=== PATIENT | male | born 1960 | race Caucasian/White ===

== ENCOUNTER 2020-01-08 14:13 | Inpatient (IN) | payer OTHER ==
[~2020-01-08] VITALS: Ht 185.4 cm; Wt 84.1 kg
[2020-01-08] MEDS ORDERED: AMLO5TAB9 PO (14:48)
[2020-01-08] MEDS ORDERED: ASPI81TA31 PO (14:48)
[2020-01-08] MEDS ORDERED: INSU100I26 SUBCUT (14:48)
[2020-01-08] MEDS ORDERED: HYDR-894 PO (14:49)
[2020-01-08] MEDS ORDERED: LOSA100T31 PO (14:49)
[2020-01-08] MEDS ORDERED: METO-357 PO (14:49)
[2020-01-08] MEDS ORDERED: GABA-534 PO (14:49)
[2020-01-08 15:37] LABS: *BILIRUBIN,URIN NEGATIVE (NEGATIVE); *CLARITY,URINE CLEAR (CLEAR); *COLOR,URINE YELLOW (YELLOW); *KETONES,URINE NEGATIVE (NEGATIVE); *UROBILINOGEN,URINE 0.2 E.U./dl (NORMAL); LEUKOCYTE ESTERASE ,URINE NEGATIVE (NEGATIVE); NITRITE, URINE NEGATIVE (NEGATIVE); PH,URINE 6.5 (5.0-8.0); UGLUCOSE 2+ (NEGATIVE)
[2020-01-08 15:44] LABS: BASOPHILS # (AUTO) 0.2 K/uL (0.0-8.0); BASOPHILS % (AUTO) 2.4 % (0.0-2.0); EOSINOPHILS # (AUTO) 0.1 K/uL (0.0-0.7); EOSINOPHILS % (AUTO) 1.8 % (0.0-7.0); HEMATOCRIT 24.9 % (36.7-47.1); HEMOGLOBIN 8.6 g/dL (12.5-16.3); LYMPHOCYTES # (AUTO) 1.9 K/uL (20.0-40.0); MEAN CORPUSCULAR HEMOGLOBIN 34.5 uug (23.8-33.4); MEAN CORPUSCULAR HGB CONC 35 g/dL (32.5-36.3); MEAN CORPUSCULAR VOLUME 99.8 fL (73.0-96.2); MONOCYTES # (AUTO) 0.6 K/uL (2.0-10.0); NEUTROPHILS # (AUTO) 4.1 K/uL (1.8-8.9); NEUTROPHILS % (AUTO) 59.8 % (38.5-71.5); PLATELET COUNT (AUTO) 507 K/uL (152-348); WHITE BLOOD COUNT (AUTO) 6.9 K/uL (3.6-10.2)
[2020-01-08 15:44] LABS: *AMPHETAMINE, URINE NEGATIVE (NEGATIVE); *BARBITURATE, URINE NEGATIVE (NEGATIVE); *CANNABINOID, URINE NEGATIVE (NEGATIVE); *COCCAINE, URINE NEGATIVE (NEGATIVE); *OPIATE, URINE NEGATIVE (NEGATIVE); *PHENCYCLIDINE SCREEN,URINE NEGATIVE (NEGATIVE)
[2020-01-08 15:53] LABS: CARBON DIOXIDE 29 mmol/L (21-32); CHLORIDE 106 mmol/L (98-107); CREATININE 1.6 mg/dL (0.6-1.3); POTASSIUM 4.4 mmol/L (3.5-5.1); UREA NITROGEN, BLOOD 29 mg/dL (7-18)
[2020-01-08 15:55] LABS: GLUCOSE 317 mg/dL (74-106)
[2020-01-08 15:59] LABS: ALANINE AMINOTRANSFERASE 20 U/L (16-63); ALKALINE PHOSPHATASE 61 U/L (50-136); ASPARTATE AMINOTRANSFERASE 18 U/L (15-37); BILIRUBIN,DIRECT < 0.1 mg/dL (0.0-0.2); BILIRUBIN,TOTAL 0.1 mg/dL (0.2-1.0); TOTAL PROTEIN, SERUM 5.8 g/dL (6.4-8.2)
[2020-01-08] MEDS ORDERED: INSULIN REGULAR, HUMAN 300 UNIT/3 ML VIAL IV ONE (16:00)
[2020-01-08 16:01] LABS: *BLOOD, URINE TRACE (NEGATIVE)
[2020-01-08] MEDS ORDERED: INSULIN REGULAR, HUMAN 300 UNIT/3 ML VIAL ONE (16:04)
[2020-01-08 16:07] LABS: ETHANOL < 3 MG/DL (0-0)
[2020-01-08 16:07] LABS: SQUAMOUS EPITHELIAL CELL,UR FEW /HPF (NONE SEEN); WBC,URINE 0-3 /HPF (0-3)
[2020-01-08 16:12] LABS: THYROID STIMULATING HORMONE 3.051 mIU/mL (0.358-3.740)
--- NOTE | 2020-01-08 16:13 | NUR ---
Patient not medically cleared due to low grade fever.
[2020-01-08] MEDS ORDERED: INSULIN REGULAR, HUMAN 300 UNIT/3 ML VIAL SQ ONE (16:15)
--- NOTE | 2020-01-08 16:29 | NUR ---
Dr Razo spoke Marco SOFTWARE QUALITY ENGINEER distribution technician [facility]. Okay to admit patient to med surg.
--- NOTE | 2020-01-08 16:40 | NUR ---
Unable transfer patient to 3rd floor med surg due to no sitter availbale.
[2020-01-08] MEDS ORDERED: DEXTROSE 50% 50 ML DISP.SYRIN IV PRN (19:00)
[2020-01-08] MEDS ORDERED: ONDANSETRON 4 MG/2 ML VIAL IV PRN (19:00)
[2020-01-08] MEDS ORDERED: MORPHINE SULFATE 2 MG/1 ML DISP.SYRIN IV PRN (19:00)
[2020-01-08] MEDS ORDERED: HYDROCODONE/APAP 5-325MG TABLET PO PRN (19:00)
--- NOTE | 2020-01-08 19:05 | NUR ---
Annie villagomez in [facility] - 01/08/20 at 2 by [id number] Patient out of unit for ct scan.
--- NOTE | 2020-01-08 19:26 | NUR ---
Annie villagomez in [facility] - 01/08/20 at 2032 by CAYETANO Patient back from ct scan
[2020-01-08] MEDS ORDERED: FOLIC ACID 1 MG TABLET PO ONE (19:30)
[2020-01-08] MEDS ORDERED: THIAMINE HCL 100 MG TABLET PO ONE (19:30)
--- NOTE | 2020-01-08 20:28 | NUR ---
PATIENT TRANSFERED TO 3RD FLOOR VIA WHEELCHAIR. NO DISTRESS NOTED.
--- NOTE | 2020-01-08 20:40 | NUR ---
Admitted 59y/o Male under the care of Phil PARK. Patient is A&Ox4, no SOB noted. Placed on Tele monitor noted Sinus Leroy. IV on LFA 20g intact and patent. On 5150 hold of SI and DTS w/ 1:1 sitter. Admission protocol initiated. Body assessment done. Safety measures in place. Will cont to monitor
[2020-01-08] MEDS: IV NS 1000 ML 1,000 ML IV PRN (21:40)
[2020-01-08] MEDS: INSULIN REGULAR, HUMAN 300 UNITS/3 ML VIAL SQ PRN (21:46)
[2020-01-08] MEDS: BLOOD SUGAR DIAGNOSTIC 1 EACH STRIP VI SCH (21:49)
[2020-01-08] MEDS ORDERED: CLONIDINE HCL 0.2 MG TABLET PO ONE (22:15)
[2020-01-08] MEDS ORDERED: CLONIDINE HCL 0.1 MG TABLET PO PRN (22:15)
--- NOTE | 2020-01-08 22:20 | NUR ---
Patient noted w/ elevated BP 177/73, HR-47, informed Cihp IGNITION MECHANIC w/ n.o for Clonidine 0.2mg PO x 1 dose now and Clonidine 0.1mg PO Q6PRN for SBP>160. Also patient requesting for sleeping pill and said he's been taking Trazodone every night, n.o for Trazodone 50mg PO QHS PRN. Clarified w/ Phil IGNITION MECHANIC if ok to give clonidine for HR of 47 and he said yes.
[2020-01-08] MEDS: TRAZODONE 50 MG TABLET PO PRN (22:32)
--- NOTE | 2020-01-08 23:35 | NUR ---
Clarified w/ Phil ELECTRONICS SPECIALIST regarding patient's dx of r/o COVID and the need for isolation, he said yes for isolation so will transfer patient to [facility] covid unit rm 210 for PUI.
--- NOTE | 2020-01-09 00:20 | NUR ---
Report given to Ely CLANCY for transfer of care, patient transferred to rm 210 for contact and droplet isolation for r/o COVID
--- NOTE | 2020-01-09 00:30 | NUR ---
PATIENT RECEIVED INTO CARE VIA RNEY FROM ER. PATIENT IS ALERT/ORIENTED X4 AND HAS NO COMPLAINTS OF PAIN OR DISCOMFORT AT THIS TIME. PATIENT DENIES SI AND IS ABLE TO CONTRACT FOR SAFETY WITH THIS NURSE. ALL SAFETY AND ISOLATION PRECAUTIONS ARE IN PLACE. 1:1 SITTER AT SIDE. WILL CONTINUE TO MONITOR AND ASSESS.
--- NOTE | 2020-01-09 06:00 | NUR ---
PATIENT SLEPT INTERMITTENTLY THROUGHOUT NIGHT WITH NO COMPLAINTS OF PAIN OR DISCOMFORT VERBALIZED. PATIENT HAD NO INCIDENTS OF SI THIS SHIFT AND IS STILL AYAZ FOR SAFETY WITH THIS NURSE. ALL PRESCRIBED MEDICATIONS PROVIDED ORDERED AND TOLERATED WELL WITH NO ADVERSE SIDE EFFECTS VERBALIZED BY PATIENT OR NOTED/OBSERVED BY THIS NURSE. ALL SAFETY AND ISOLATION PRECAUTIONS REMAIN IN PLACE.
[2020-01-09] MEDS: PANTOPRAZOLE SODIUM 40 MG TABLET.DR PO SCH (06:15)
[2020-01-09] MEDS: BLOOD SUGAR DIAGNOSTIC 1 EACH STRIP VI SCH ×4 (06:30→20:31)
[2020-01-09 07:55] VITALS: BP 162/67
--- NOTE | 2020-01-09 08:15 | NUR ---
Patient in bed, awake and verbally responsive. On Room air saturating 97%. No complain of Pain or discomfort. Still awaiting for covid 19 test. patient on Hold until 01/09/2020 1432 , remains on 1:1 sitter. Kept clean and comfortable. BS 226, will give 6 units Regular Insulin. Kept clean and comfortable. Will continue to monitor.
[2020-01-09] MEDS: INSULIN REGULAR, HUMAN 300 UNIT/3 ML VIAL SQ PRN ×3 (08:41→17:17)
[2020-01-09] MEDS: ASPIRIN 81 MG TAB.CHEW PO SCH (08:45)
[2020-01-09] MEDS: MULTIVITAMINS,THERAPEUTIC TABLET PO SCH (08:45)
[2020-01-09] MEDS: GABAPENTIN 300 MG CAPSULE PO SCH ×3 (08:45→16:56)
[2020-01-09] MEDS: AMLODIPINE 5 MG TABLET PO SCH (08:46)
[2020-01-09] MEDS: LOSARTAN POTASSIUM 50 MG TABLET PO SCH (08:46)
[2020-01-09] MEDS ORDERED: Medication Not On Formulary EA (Losartan Potassium 100 MG) PO SCH (09:00)
[2020-01-09] MEDS ORDERED: METOPROLOL SUCCINATE XL 50 MG TAB.SR.24H PO SCH (09:00)
[2020-01-09] MEDS ORDERED: hydrALAZINE HCL 25 MG TABLET PO SCH (09:00)
[2020-01-09] MEDS ORDERED: METOPROLOL TARTRATE 50 MG TABLET PO SCH (09:54)
[2020-01-09] MEDS ORDERED: METO50TA16 PO (09:56)
[2020-01-09] MEDS: NICOTINE 14 MG/24HR PATCH TD SCH (11:01)
[2020-01-09 11:17] VITALS: BP 143/64
[2020-01-09] MEDS ORDERED: hydrALAZINE HCL 25 MG TABLET PO PRN (13:30)
[2020-01-09] MEDS: IV NS 1000 ML 1,000 ML IV PRN (14:16)
[2020-01-09 15:20] VITALS: BP 126/67
--- NOTE | 2020-01-09 18:11 | NUR ---
Patient in bed, awake and verbally responsive. No signs of distress noted. NO SOB. Saturating 98% on Room Air. Afebrile. No complain of Pain or discomfort. Last BS is 170, 3 units given as ordered. Remains on 1:1 sitter. Kept clean and comfortable. Will Endorse to Oncoming Nurse.
[2020-01-09 20:00] VITALS: BP 144/69
[2020-01-09] MEDS: INSULIN REGULAR, HUMAN 300 UNITS/3 ML VIAL SQ PRN (20:33)
[2020-01-09] MEDS ORDERED: TRAZODONE 100 MG TABLET ONE (22:39)
[2020-01-09] MEDS: TRAZODONE 100 MG TABLET PO SCH (22:59)
[2020-01-10 01:05] VITALS: BP 136/56
[2020-01-10 04:40] VITALS: BP 165/69
--- NOTE | 2020-01-10 05:12 | NUR ---
No acute events overnight, pt able to sleep during shift,pt put on a 14 day hold by Psychiatrist, pt agrees with the plan of care.
[2020-01-10] MEDS: IV NS 1000 ML 1,000 ML IV PRN (05:57)
[2020-01-10] MEDS: PANTOPRAZOLE SODIUM 40 MG TABLET.DR PO SCH (06:46)
[2020-01-10] MEDS: BLOOD SUGAR DIAGNOSTIC 1 EACH STRIP VI SCH ×4 (07:00→21:57)
[2020-01-10 08:00] VITALS: BP 161/67
--- NOTE | 2020-01-10 08:00 | NUR ---
Patient noted sitting up in bed, took all AM medications, no complaints of pain, no signs of distress noted, call light in reach, bed locked and in lowest position, all needs met at this time
[2020-01-10] MEDS: SERTRALINE HCL 50 MG TABLET PO SCH (08:27)
[2020-01-10] MEDS: LOSARTAN POTASSIUM 50 MG TABLET PO SCH (08:27)
[2020-01-10] MEDS: ASPIRIN 81 MG TAB.CHEW PO SCH (08:27)
[2020-01-10] MEDS: MULTIVITAMINS,THERAPEUTIC TABLET PO SCH (08:27)
[2020-01-10] MEDS: GABAPENTIN 300 MG CAPSULE PO SCH ×3 (08:27→16:33)
[2020-01-10] MEDS: INSULIN REGULAR, HUMAN 300 UNIT/3 ML VIAL SQ PRN ×3 (08:28→16:44)
[2020-01-10] MEDS: AMLODIPINE 5 MG TABLET PO SCH (08:28)
[2020-01-10] MEDS: NICOTINE 14 MG/24HR PATCH TD SCH (08:31)
[2020-01-10 10:33] LABS: BASOPHILS # (AUTO) 0.2 K/uL (0.0-8.0); BASOPHILS % (AUTO) 2.4 % (0.0-2.0); EOSINOPHILS # (AUTO) 0.1 K/uL (0.0-0.7); EOSINOPHILS % (AUTO) 1.4 % (0.0-7.0); HEMATOCRIT 27.5 % (36.7-47.1); HEMOGLOBIN 9.4 g/dL (12.5-16.3); LYMPHOCYTES # (AUTO) 1.7 K/uL (20.0-40.0); LYMPHOCYTES % (AUTO) 25.4 % (20.5-51.5); MEAN CORPUSCULAR HEMOGLOBIN 34.6 uug (23.8-33.4); MEAN CORPUSCULAR HGB CONC 34 g/dL (32.5-36.3); MEAN CORPUSCULAR VOLUME 101.7 fL (73.0-96.2); MONOCYTES # (AUTO) 0.4 K/uL (2.0-10.0); MONOCYTES % (AUTO) 5.3 % (0.0-11.0); NEUTROPHILS # (AUTO) 4.5 K/uL (1.8-8.9); NEUTROPHILS % (AUTO) 65.5 % (38.5-71.5); PLATELET COUNT (AUTO) 524 K/uL (152-348); RED BLOOD CELL COUNT(AUTO) 2.71 MIL/uL (4.06-5.63); WHITE BLOOD COUNT (AUTO) 6.8 K/uL (3.6-10.2)
[2020-01-10 10:55] LABS: BILIRUBIN,TOTAL 0.2 mg/dL (0.2-1.0); CREATININE 1.5 mg/dL (0.6-1.3); MAGNESIUM 1.8 mg/dL (1.8-2.4); PHOSPHOROUS 3.3 mg/dL (2.5-4.9); POTASSIUM 4.5 mmol/L (3.5-5.1); TOTAL PROTEIN, SERUM 5.9 g/dL (6.4-8.2)
[2020-01-10 15:14] VITALS: BP 142/68
--- NOTE | 2020-01-10 19:30 | NUR ---
RECEIVED PT AWAKE. ALERT AND ORIENTED X4.PT PLEASANT WHEN APPROACHED. SITTER AT BEDSIDE FOR SAFETY. PT HAD NO S.I. PT IN NO ACUTE DISTRESS. IV INTACT. SAFETY AND COMFORT PROVIDED. WILL CONTINUE TO MONITOR.
[2020-01-10 20:00] VITALS: BP 170/63
[2020-01-10] MEDS: TRAZODONE 100 MG TABLET PO SCH (20:57)
[2020-01-10] MEDS: ACETAMINOPHEN 325 MG TABLET PO PRN (20:58)
[2020-01-10] MEDS: INSULIN GLARGINE,HUM 300 UNITS/3 ML CARTRIDGE SQ SCH (21:01)
[2020-01-10] MEDS: INSULIN REGULAR, HUMAN 300 UNITS/3 ML VIAL SQ PRN (21:59)
[2020-01-10] MEDS: LORAZEPAM 0.5 MG TABLET PO PRN (22:08)
[2020-01-10] MEDS: hydrALAZINE HCL 50 MG TABLET PO PRN (22:08)
[2020-01-10 23:40] VITALS: BP 142/64
[2020-01-11 04:00] VITALS: BP 163/70
[2020-01-11 05:30] VITALS: BP 142/54
[2020-01-11] MEDS: hydrALAZINE HCL 50 MG TABLET PO PRN (05:49)
[2020-01-11] MEDS: ACETAMINOPHEN 325 MG TABLET PO PRN (05:49)
[2020-01-11] MEDS: PANTOPRAZOLE SODIUM 40 MG TABLET.DR PO SCH (06:19)
--- NOTE | 2020-01-11 06:22 | NUR ---
GIVEN APRESOLINE TWICE IN MY SHIFT FOR BP>160. PT TOLERATED IT WELL . AFTER AN HOUR PT BP DIASTOLIC IS ON 140'S. SAFETY AND COMFORT PROVIDED. WILL CONTINUE TO MONITOR.
--- NOTE | 2020-01-11 06:23 | NUR ---
PT SLEPT 7 HOURS. PT IN NO ACUTE DISTRESS. PRESCRIBED MEDICATION GIVEN AND PT TOLERATED IT WELL.SITTER FOR SAFETY. SAFETY AND COMFORT PROVIDED. ALL NEEDS ARE MET.WILL ENDORSE TO INCOMING NURSE FOR CONTINUITY OF CARE.
[2020-01-11] MEDS: BLOOD SUGAR DIAGNOSTIC 1 EACH STRIP VI SCH ×4 (06:35→20:20)
[2020-01-11 07:13] LABS: CREATININE 1.5 mg/dL (0.6-1.3); POTASSIUM 3.8 mmol/L (3.5-5.1)
[2020-01-11 07:18] LABS: BASOPHILS # (AUTO) 0.2 K/uL (0.0-8.0); BASOPHILS % (AUTO) 3.5 % (0.0-2.0); EOSINOPHILS # (AUTO) 0.2 K/uL (0.0-0.7); EOSINOPHILS % (AUTO) 3.7 % (0.0-7.0); HEMATOCRIT 27.2 % (36.7-47.1); HEMOGLOBIN 9.4 g/dL (12.5-16.3); LYMPHOCYTES % (AUTO) 46.3 % (20.5-51.5); MEAN CORPUSCULAR HEMOGLOBIN 34.5 uug (23.8-33.4); MEAN CORPUSCULAR HGB CONC 35 g/dL (32.5-36.3); MONOCYTES # (AUTO) 0.7 K/uL (2.0-10.0); MONOCYTES % (AUTO) 10.6 % (0.0-11.0); NEUTROPHILS # (AUTO) 2.3 K/uL (1.8-8.9); NEUTROPHILS % (AUTO) 35.9 % (38.5-71.5); PLATELET COUNT (AUTO) 501 K/uL (152-348); RED BLOOD CELL COUNT(AUTO) 2.72 MIL/uL (4.06-5.63); WHITE BLOOD COUNT (AUTO) 6.6 K/uL (3.6-10.2)
[2020-01-11] MEDS: GABAPENTIN 300 MG CAPSULE PO SCH ×3 (09:15→17:00)
[2020-01-11] MEDS: ASPIRIN 81 MG TAB.CHEW PO SCH (09:15)
[2020-01-11] MEDS: MULTIVITAMINS,THERAPEUTIC TABLET PO SCH (09:15)
[2020-01-11] MEDS: SERTRALINE HCL 50 MG TABLET PO SCH (09:15)
[2020-01-11] MEDS: NICOTINE 14 MG/24HR PATCH TD SCH (09:15)
--- NOTE | 2020-01-11 09:30 | NUR ---
Patient is alert, oriented x 4, not in any form of distress on room air. Due medications administered and tolerated well. Patient denies any pain or discomfort. Assisted with his needs promptly. Call light and frequently used items placed within patient's reach. Safety measures maintained. Peripheral IV line in place and patent, no signs of infection. Patient denies any suicidal ideation. 1:1 sitter at bedside.
[2020-01-11] MEDS: IV NS 1000 ML 1,000 ML IV PRN (10:08)
[2020-01-11] MEDS: INSULIN REGULAR, HUMAN 300 UNIT/3 ML VIAL SQ PRN ×2 (10:17→12:37)
[2020-01-11] MEDS: AMLODIPINE 5 MG TABLET PO SCH (10:25)
[2020-01-11] MEDS: LOSARTAN POTASSIUM 50 MG TABLET PO SCH (10:25)
[2020-01-11] MEDS ORDERED: AMLODIPINE 2.5 MG TABLET PO ONE (11:15)
[2020-01-11] MEDS ORDERED: IOHEXOL 350 100 ML INFUS..BTL ONE (12:28)
[2020-01-11] MEDS ORDERED: SWABABLE VALVE TRANSFER SET EA MC ONE (12:29)
[2020-01-11] MEDS ORDERED: IV NORMAL SALINE 250 ML IV ONE (12:30)
[2020-01-11] MEDS: ENOXAPARIN SODIUM 80 MG/0.8 ML DISP.SYRIN SQ SCH ×2 (12:57→20:17)
--- NOTE | 2020-01-11 16:50 | NUR ---
Received a call from Dr. Gomez from radiology dept and said result of CTA chest small pulmonary emboli on right lower lobe. Patient has no complain of any pain or discomfort. Informed Phil Bledsoe NP of result and ordered to hold discharge to MHU and transfer patient to 3rd floor [facility]. Report given to Brinda CLANCY. Patient transferred to 3rd floor safely.
--- NOTE | 2020-01-11 19:30 | NUR ---
RECEIVED PT AWAKE, ALERT AND ORIENTEDX4. PT IN NO ACUTE DISTRESS.SITTER FOR SAFETY. IV INTACT. SAFETY AND COMFORT PROVIDED.
[2020-01-11 20:16] VITALS: BP 131/77
[2020-01-11] MEDS: TRAZODONE 100 MG TABLET PO SCH (20:16)
[2020-01-11] MEDS: INSULIN GLARGINE,HUM 300 UNITS/3 ML CARTRIDGE SQ SCH (21:06)
[2020-01-11] MEDS: INSULIN REGULAR, HUMAN 300 UNITS/3 ML VIAL SQ PRN (21:07)
[2020-01-11] MEDS: TRAZODONE 50 MG TABLET PO PRN (22:53)
[2020-01-12 04:50] VITALS: BP 130/64
[2020-01-12] MEDS: PANTOPRAZOLE SODIUM 40 MG TABLET.DR PO SCH (06:02)
--- NOTE | 2020-01-12 06:09 | NUR ---
PT IN NO ACUTE DISTRESS. IV INTACT. PRESCRIBED MEDICATION GIVEN AND PT TOLERATED IT WELL. SAFETY AND COMFORT PROVIDED.WILL ENDORSE TO INCOMING NURSE FOR CONTINUITY OF CARE.
[2020-01-12] MEDS: BLOOD SUGAR DIAGNOSTIC 1 EACH STRIP VI SCH ×4 (06:48→20:35)
[2020-01-12 08:09] LABS: A/G RATIO 0.8 (0.7-1.7); ALBUMIN 2.4 g/dL (2.9-4.4); ALPHA-1-GLOBULIN 0.2 g/dL (0.0-0.4); ALPHA-2-GLOBULIN 0.7 g/dL (0.4-1.0); GAMMA GLOBULIN 0.9 g/dL (0.4-1.8); GLOBULIN, TOTAL 2.9 g/dL (2.2-3.9); M-SPIKE Not Observed g/dL (Not Observed)
[2020-01-12 08:25] VITALS: BP 132/68
[2020-01-12] MEDS: ASPIRIN 81 MG TAB.CHEW PO SCH (08:29)
[2020-01-12] MEDS: AMLODIPINE 5 MG TABLET PO SCH (08:30)
[2020-01-12] MEDS: GABAPENTIN 300 MG CAPSULE PO SCH ×3 (08:31→16:43)
[2020-01-12] MEDS: SERTRALINE HCL 50 MG TABLET PO SCH (08:31)
[2020-01-12] MEDS: LOSARTAN POTASSIUM 50 MG TABLET PO SCH (08:31)
[2020-01-12] MEDS: MULTIVITAMINS,THERAPEUTIC TABLET PO SCH (08:31)
[2020-01-12] MEDS: INSULIN REGULAR, HUMAN 300 UNIT/3 ML VIAL SQ PRN ×2 (08:33→12:01)
[2020-01-12] MEDS: ENOXAPARIN SODIUM 80 MG/0.8 ML DISP.SYRIN SQ SCH (08:33)
[2020-01-12] MEDS: NICOTINE 14 MG/24HR PATCH TD SCH (08:33)
--- NOTE | 2020-01-12 14:59 | NUR ---
PATIENT CALM AND COMFORTABLE RESTING IN BED WITH NO SIGNS OF DISTRESS; PATIENT WILL CONTINUE TO BE MONITORED .
[2020-01-12 15:18] VITALS: BP 156/69
[2020-01-12] MEDS: APIXABAN 5 MG TABLET PO SCH (16:47)
--- NOTE | 2020-01-12 18:28 | NUR ---
PATIENT CALM AND COMFORTABLE THROUGH OUT SHIFT WITH NO SIGNS OF DISTRESS; PATIENT WITH 1:1 SITTER; PATIENT MEDICATION COMPLIANT .
[2020-01-12] MEDS: IV NS 1000 ML 1,000 ML IV PRN (19:20)
--- NOTE | 2020-01-12 19:20 | NUR ---
RECEIVED PATIENT LYING IN BED. AOX4. IN NO ACUTE DISTRESS. DENIES ANY PAIN OR SOB. DENIES ANY SI/HI. 1;1 SITTER ON SITE. IV SITE ON LEFT FA INTACT AND PATENT. PATIENT REFUSED IVF. NEEDS ASSESSED AND ATTENDED TO. SAFETY MEASURE INITIATED, CONTINUE TO MONITOR.
[2020-01-12 20:08] VITALS: BP_SYST 169; BP_SYST 178; BP_DIAS 75
[2020-01-12] MEDS: hydrALAZINE HCL 50 MG TABLET PO PRN (20:31)
[2020-01-12] MEDS: INSULIN REGULAR, HUMAN 300 UNITS/3 ML VIAL SQ PRN (20:37)
[2020-01-12] MEDS: INSULIN GLARGINE,HUM 300 UNITS/3 ML CARTRIDGE SQ SCH (20:38)
[2020-01-12] MEDS: TRAZODONE 100 MG TABLET PO SCH (21:38)
[2020-01-12 22:00] VITALS: BP 145/63
[2020-01-12] MEDS: LORAZEPAM 0.5 MG TABLET PO PRN (23:05)
--- NOTE | 2020-01-13 05:52 | NUR ---
SLEPT WELL LAST NIGHT AFTER ATIVAN PRN WAS GIVEN. AOX4. IN NO ACUTE DISTRESS. DENIES ANY PAIN OR SOB. DENIES ANY SI/HI. CALM, PLEASANT AND COOPERATIVE WITH CARE. 1:1 SITTER ON SITE. IV SITE ON LEFT FA INTACT AND PATENT. NEEDS ATTENDED TO AND MET. SAFETY MEASURE MAINTAINED.
[2020-01-13 06:00] VITALS: BP 166/77
[2020-01-13] MEDS: PANTOPRAZOLE SODIUM 40 MG TABLET.DR PO SCH (06:05)
[2020-01-13] MEDS: ACETAMINOPHEN 325 MG TABLET PO PRN (06:30)
[2020-01-13] MEDS: hydrALAZINE HCL 50 MG TABLET PO PRN (06:30)
[2020-01-13] MEDS: BLOOD SUGAR DIAGNOSTIC 1 EACH STRIP VI SCH (06:32)
[2020-01-13 07:01] LABS: IRON, SERUM 74 ug/dL (50-175)
[2020-01-13 07:29] LABS: FERRITIN 202 ng/mL (26-388)
[2020-01-13] MEDS: ASPIRIN 81 MG TAB.CHEW PO SCH (09:29)
[2020-01-13] MEDS: AMLODIPINE 5 MG TABLET PO SCH (09:30)
[2020-01-13] MEDS: MULTIVITAMINS,THERAPEUTIC TABLET PO SCH (09:30)
[2020-01-13] MEDS: GABAPENTIN 300 MG CAPSULE PO SCH (09:30)
[2020-01-13] MEDS: SERTRALINE HCL 50 MG TABLET PO SCH (09:30)
[2020-01-13 09:31] VITALS: BP 152/67
[2020-01-13] MEDS: LOSARTAN POTASSIUM 50 MG TABLET PO SCH (09:31)
[2020-01-13] MEDS: NICOTINE 14 MG/24HR PATCH TD SCH (09:47)
[2020-01-13] MEDS: APIXABAN 5 MG TABLET PO SCH (09:47)
[2020-01-13] MEDS: INSULIN REGULAR, HUMAN 300 UNIT/3 ML VIAL SQ PRN (09:48)
[2020-01-13 10:08] LABS: *OCCULT BLOOD STOOL NEGATIVE (NEGATIVE)
--- NOTE | 2020-01-13 12:30 | NUR ---
PATIENT DISCHARGED HOME IN STABLE CONDITION WITH NO SIGNS OF DISTRESS;PATIENT GIVEN PRESCRIPTION AND DISCHARGE INSTRUCTIONS; PATIENT VERBALIZED UNDERSTANDING; PATIENT GIVEN ALL BELONGINGS AND VALUABLES. PATIENT PICKED UP MY SISTER.
[2020-01-13] MEDS ORDERED: hydrALAZINE HCL 50 MG TABLET PO SCH (14:00)
[2020-01-13] MEDS ORDERED: INSULIN GLARGINE,HUM 300 UNITS/3 ML CARTRIDGE SQ SCH (21:00)
[2020-01-14 07:06] LABS: *IMMUNOGLOBULIN G, SERUM 932 mg/dL (603-1613); IMMUNOGLOBULIN A, SERUM 243 mg/dL (90-386); IMMUNOGLOBULIN M, SERUM 81 mg/dL (20-172)
[2020-01-15 10:06] LABS: PTT-LA 36.4 sec (0.0-51.9); THROMBIN TIME 16.8 sec (0.0-23.0)
[2020-01-15 11:06] LABS: LUPUS INTERPRETATION Comment: (.)
== END 2020-01-13 12:30 | disposition home or self-care (01) | DRG 682 ==
LOC: ER 14:13 → TELE3 20:15 → TELE 01-09 00:14 → MED 01-11 13:16 → MEDSURG3 01-11 17:00
PROVIDERS: ADMIT Nurse Practitioner Acute Care; ATTEND Nurse Practitioner Acute Care
DX: N17.0 Acute kidney failure with tubular necrosis (principal); E43 Unspecified severe protein-calorie malnutrition; I26.94 Multiple subsegmental thrombotic pulmonary emboli without acute cor pulmonale; F33.9 Major depressive disorder, recurrent, unspecified; F23 Brief psychotic disorder; R50.9 Fever, unspecified; E86.9 Volume depletion, unspecified; E87.6 Hypokalemia; F17.210 Nicotine dependence, cigarettes, uncomplicated; F41.9 Anxiety disorder, unspecified; I13.10 Hypertensive heart and chronic kidney disease without heart failure, with stage 1 through stage 4 chronic kidney disease, or unspecified chronic kidney disease; N18.9 Chronic kidney disease, unspecified; Z79.01 Long term (current) use of anticoagulants; E11.22 Type 2 diabetes mellitus with diabetic chronic kidney disease; Z79.4 Long term (current) use of insulin; F10.20 Alcohol dependence, uncomplicated; Y90.9 Presence of alcohol in blood, level not specified; E88.09 Other disorders of plasma-protein metabolism, not elsewhere classified; R00.1 Bradycardia, unspecified; E11.65 Type 2 diabetes mellitus with hyperglycemia; Z68.24 Body mass index [BMI] 24.0-24.9, adult; Z71.6 Tobacco abuse counseling; D53.9 Nutritional anemia, unspecified; Z79.82 Long term (current) use of aspirin; Z86.718 Personal history of other venous thrombosis and embolism; Z91.5 Personal history of self-harm; Z79.899 Other long term (current) drug therapy
CPT/HCPCS: 36415; 70030-TC; 71045; 71275; 80307; 82747; 82784; 83550; 83735; 83970; 84100; 84155; 84165; 84443; 85014; 85025; 85305; 85613; 85730; 86334; 87040; 87086; 93005; 93307; A4663; G0378; G0480; J1650; J1815; J7030; J7050; Q9967; U0003-CS